=== PATIENT | female | born 1960 | race Caucasian/White ===

== ENCOUNTER 2019-10-31 13:36 | Emergency (ER) | payer MEDICARE ==
--- NOTE | 2019-10-31 14:43 | ER Document Report ---
ED Medical Screen (RME) - General Chief Complaint: Fall Stated Complaint: FALL/LEFT SIDED PAIN/DIZZINESS Time Seen by Provider: 10/31/19 14:34 Mode of Arrival: Wheelchair Information source: Patient Notes: 59-year-old female presents to ED for complaint of fall at 10 AM this morning. She states she was getting ready to move and she tripped over a suitcase. She states she is having severe pain in her left arm her left hip and difficulty breathing. She states she does have a history of seizures strokes with an aneurysm patent foramen ovale SVT back fusion partial hip replacement on the left and a right shoulder surgery. She states she does smoke 4 cigarettes a day does not drink or use any illicit drugs. I have greeted and performed a rapid initial assessment of this patient. A comprehensive ED assessment and evaluation of the patient, analysis of test results and completion of medical decision making process will be conducted by an additional ED providers. - Related Data Allergies/Adverse Reactions: morphine Allergy (Verified 10/31/19 14:35) Sulfa (Sulfonamide Antibiotics) Allergy (Verified 10/31/19 14:35) Physical Exam - Vital signs Vitals: Temp Pulse Resp BP Pulse Ox 98.7 F 67 18 96/55 L 97 10/31/19 13:53 10/31/19 13:53 10/31/19 13:53 10/31/19 13:53 10/31/19 13:53 Course - Vital Signs Vital signs: Temp Pulse Resp BP Pulse Ox 98.7 F 67 18 96/55 L 97 10/31/19 13:53 10/31/19 13:53 10/31/19 13:53 10/31/19 13:53 10/31/19 13:53
--- NOTE | 2019-10-31 15:21 | RADIOLOGY REPORT (SQ) ---
EXAM DESCRIPTION: FOREARM LEFT COMPLETED DATE/TIME: 10/31/2019 3:13 pm REASON FOR STUDY: Fall shortness of breath pain in left ribs pain an COMPARISON: None. NUMBER OF VIEWS: Two views. TECHNIQUE: Two radiographic images acquired of the left forearm, including elbow and wrist in at siva st one projection. LIMITATIONS: None. FINDINGS: MINERALIZATION: Normal. BONES: No acute fracture in the forearm. There is subtle irregularity of the triquetrum which is inc ompletely evaluated. SOFT TISSUES: No obvious swelling or foreign body. OTHER: No other significant finding. IMPRESSION: No acute fracture in the left forearm. Subtle irregularity of the triquetrum. Recommend dedicated left wrist radiographs for further evalua tion. TECHNICAL DOCUMENTATION: JOB ID: [id number] 2010 [employer]- All Rights Reserved Reading location - IP/workstation name: [email or web address]
--- NOTE | 2019-10-31 15:23 | RADIOLOGY REPORT (SQ) ---
EXAM DESCRIPTION: HIP LEFT AP/LATERAL IMAGES COMPLETED DATE/TIME: 10/31/2019 3:13 pm REASON FOR STUDY: Fall shortness of breath pain in left ribs pain an COMPARISON: None. NUMBER OF VIEWS: Two views. TECHNIQUE: AP pelvis and additional frog legview of the left hip. LIMITATIONS: None. FINDINGS: MINERALIZATION: Normal. LEFT HIP: Status post left total hip arthroplasty. No periprosthetic lucency or displaced fracture. RIGHT HIP: No fracture or dislocation. No worrisome bone lesions. Limited views. PUBIS AND ISCHIUM: No fracture. PELVIS: No fracture. SACRUM: No fracture or dislocation. No worrisome bone lesions. LOWER LUMBAR SPINE: No fracture or dislocation. No worrisome bone lesions. No significant disc disea se. Posterior fusion at L4-S1 is noted. SOFT TISSUES: No findings. OTHER: No other significant finding. IMPRESSION: No acute fracture in the pelvis or left hip. TECHNICAL DOCUMENTATION: JOB ID: [id number] 2010 [employer] All Rights Reserved Reading location - IP/workstation name: [email or web address]
--- NOTE | 2019-10-31 15:25 | RADIOLOGY REPORT (SQ) ---
EXAM DESCRIPTION: RIBS LEFT W/PA CHEST IMAGES COMPLETED DATE/TIME: 10/31/2019 3:13 pm REASON FOR STUDY: Fall shortness of breath pain in left ribs pain an COMPARISON: None. TECHNIQUE: Frontal view of the chest and additional views of the left ribs acquired. NUMBER OF VIEWS: 3 LIMITATIONS: None. FINDINGS: FRONTAL CXR: No pneumothorax. No pleural effusion. No atelectasis or infiltrates. RIBS: No displaced rib fractures. No lytic or blastic bony lesions. OTHER: Presumed ASD closure device is noted. No other significant finding. IMPRESSION: No displaced or angulated rib fracture. No acute pulmonary process. COMMENT: SITE OF TRAUMA/COMPLAINT MARKED/STAMP COMPLETED: YES. TECHNICAL DOCUMENTATION: JOB ID: [id number] 2010 [email or web address]- All Rights Reserved Reading location - IP/workstation name: [email or web address]
[2019-10-31 15:57] LABS: HEMATOCRIT 36.8 % (36.0-47.0); HEMOGLOBIN 11.6 g/dL (12.0-15.5); MEAN CORPUSCULAR HEMOGLOBIN 18.9 pg (27.0-33.4); MEAN CORPUSCULAR HGB CONC 31.5 g/dL (32.0-36.0); PLATELET COUNT 343 10^3/uL (150-450); RED BLOOD COUNT 6.14 10^6/uL (3.72-5.28); RED CELL DISTRIBUTION WIDTH 16.8 % (11.5-14.0); WHITE BLOOD COUNT 13.6 10^3/uL (4.0-10.5)
[2019-10-31 16:04] LABS: ALBUMIN 5.2 g/dL (3.5-5.0); ALKALINE PHOSPHATASE 45 U/L (38-126); ANION GAP 12 (5-19); ASPARTATE AMINO TRANSFERASE 31 U/L (14-36); BILIRUBIN,DIRECT 0.3 mg/dL (0.0-0.4); BILIRUBIN,TOTAL 1.1 mg/dL (0.2-1.3); BLOOD UREA NITROGEN 24 mg/dL (7-20); CALCIUM 9.7 mg/dL (8.4-10.2); CARBON DIOXIDE 22 mmol/L (22-30); CHLORIDE 106 mmol/L (98-107); GLUCOSE 108 mg/dL (75-110); POTASSIUM 4.2 mmol/L (3.6-5.0); TOTAL PROTEIN 8.4 g/dL (6.3-8.2)
[2019-10-31 16:34] LABS: MEAN CORPUSCULAR VOLUME 60 fl (80-97)
[2019-10-31 16:37] LABS: ABSOLUTE MONOCYTES # (MANUAL) 0.1 10^3/uL (0.1-1.4); BAND NEUTROPHILS % (MANUAL) 1 % (3-5); BASOPHILS % (MANUAL) 1 % (0-2); EOSINOPHILS % (MANUAL) 0 % (0-6); LYMPHOCYTES % (MANUAL) 15 % (13-45); MONOCYTES % (MANUAL) 1 % (3-13); SEGMENTED NEUTROPHILS % (MAN) 82 % (42-78); TOTAL CELLS COUNTED 100
[2019-10-31 16:38] LABS: ANISOCYTOSIS 1+; HYPOCHROMASIA 2+
[2019-10-31 16:39] LABS: OVALOCYTES 2+; PLATELET COMMENT ADEQUATE; TARGET CELLS SLIGHT
[2019-10-31] MEDS ORDERED: HYDROCODONE/ACETAMINOPHEN 5-325 MG TABLET PO ONE (17:31)
--- NOTE | 2019-10-31 17:32 | ER Document Report ---
ED Fall - General Chief Complaint: Fall Stated Complaint: FALL/LEFT SIDED PAIN/DIZZINESS Time Seen by Provider: 10/31/19 14:34 Mode of Arrival: Wheelchair Information source: Patient Notes: 59-year-old female presents to ED for complaint of fall at 10 AM this morning. She states she was getting ready to move and she tripped over a suitcase. She states she is having severe pain in her left arm her left hip and difficulty breathing. She states she does have a history of seizures strokes with an aneurysm patent foramen ovale SVT back fusion partial hip replacement on the left and a right shoulder surgery. She states she does smoke 4 cigarettes a day does not drink or use any illicit drugs. REVIEW OF SYSTEMS: Patient has a history of thalassemia with renal sufficiency CONSTITUTIONAL : Denies fever, chills, or sweats. Denies recent illness. EENT: Denies eye, ear, throat, or mouth pain or symptoms. Denies nasal or sinus congestion. CARDIOVASCULAR: Left rib pain RESPIRATORY: Pain to left ribs after tripping over a suitcase landing on her left side. GASTROINTESTINAL: Denies abdominal pain. Denies nausea, vomiting, or diarrhea. Denies constipation. Last BM: GENITOURINARY: Denies difficulty urinating, painful urination, burning, frequency, or blood in urine. FEMALE GENITOURINARY: Denies vaginal bleeding, abnormal or irregular periods. Postmenopausal MUSCULOSKELETAL: Pain and discomfort to the left hip left arm and left wrist SKIN: Denies rash or skin lesions. HEMATOLOGIC : Denies easy bruising or bleeding. LYMPHATIC: Denies swollen, enlarged glands. NEUROLOGICAL: Denies altered mental status or loss of consciousness. Denies headache. Denies weakness or paralysis or loss of use of either side. Denies problems with gait or speech. Denies sensory or motor loss. PSYCHIATRIC: Denies anxiety or stress or depression. ALL OTHER SYSTEMS REVIEWED AND NEGATIVE. VITAL SIGNS: Within normal limits. GENERAL: No acute distress, non-toxic appearance. HEAD: Normal with no signs of head trauma. EYES: PERRLA, EOMI, conjunctiva normal, no discharge. EARS: Hearing grossly intact. NOSE: Normal. THROAT: Oropharynx is normal. NECK: Normal range of motion, no tenderness, supple, no lymphadenopathy, No adenopathy, no JVD. CHEST: Left rib pain clear breath sounds bilaterally. No wheezes, rales, or rhonchi. MUSCULOSKELETAL: Complains of pain to the left hip left ribs and left wrist and forearm. Reduced movement to the wrist due to pain. NEUROLOGICAL: Alert and oriented x 3. No focal sensory or strength deficits. Speech normal. Follows commands appropriately. PSYCHIATRIC: Normal Affect, judgement and mood. SKIN: Normal appearance with no rashes or lesions. - HPI Occurred: Just prior to arrival Where: Home, Indoors Context: Tripped - Over a suitcase Associated symptoms: None, Difficulty breathing - With deep breathing Location of injury/pain: Chest - Left rib pain, Hip - Left hip pain, Upper extremity Quality of pain: Sharp, Throbbing Severity: Moderate Pain Level: 3 - Related data Allergies/Adverse Reactions: morphine Allergy (Verified 10/31/19 14:35) Sulfa (Sulfonamide Antibiotics) Allergy (Verified 10/31/19 14:35) Past Medical History - General Information source: Patient - Social History Smoking Status: Current Every Day Smoker Cigarette use (# per day): Yes - 2 cigarettes a day Smoking Education Provided: Yes Frequency of alcohol use: None Drug Abuse: None Family History: Reviewed & Not Pertinent Patient has homicidal ideation: No - Past Medical History Cardiac Medical History: Reports: Hx Coronary Artery Disease, Other - Patent foramen ovale SVT Pulmonary Medical History: Reports: None Neurological Medical History: Reports: Hx Cerebrovascular Accident - Aneurysm, Hx Seizures Endocrine Medical History: Reports: None Renal/ Medical History: Reports: None Malignancy Medical History: Reports: None GI Medical History: Reports: None Musculoskeletal Medical History: Reports Hx Arthritis, Reports Hx Musculoskeletal Deformity, Reports Hx Musculoskeletal Trauma Skin Medical History: Reports None Psychiatric Medical History: Reports: None Traumatic Medical History: Reports: Hx Fractures Infectious Medical History: Reports: None Past Surgical History: Reports: Hx Orthopedic Surgery - Right shoulder partial hip replacement - Immunizations Immunizations up to date: Yes Physical Exam - Vital signs Vitals: Temp Pulse Resp BP Pulse Ox 98.7 F 67 18 96/55 L 97 10/31/19 13:53 10/31/19 13:53 10/31/19 13:53 10/31/19 13:53 10/31/19 13:53 Course - Re-evaluation Re-evalutation: 11/01/19 01:00 X-ray reports were discussed with patient and daughter. Written report of x- rays given to patient as well as a CD of the x-rays as patient does not live locally. Patient was given a incentive spirometer decrease the risk of pneumonia by exercise in the lungs. She was treated with a thumb spica splint for her fracture to the wrist. Patient was instructed to follow-up with her orthopedic as soon as she returned home. Daughter was with patient and luis marieed understanding and agreement treatment plan patient was discharged home. - Vital Signs Vital signs: Temp Pulse Resp BP Pulse Ox 98.7 F 70 16 112/82 98 10/31/19 13:53 10/31/19 18:31 10/31/19 18:31 10/31/19 18:31 10/31/19 18:31 - Laboratory Result Diagrams: 10/31/19 15:33 10/31/19 15:33 Laboratory results interpreted by me: 10/31/19 10/31/19 15:33 15:33 WBC 13.6 H RBC 6.14 H Hgb 11.6 L MCV 60 L MCH 18.9 L MCHC 31.5 L RDW 16.8 H Seg Neuts % (Manual) 82 H Band Neutrophils % 1 L Monocytes % (Manual) 1 L Abs Neuts (Manual) 11.3 H BUN 24 H Est GFR (MDRD) Non-Af 53 L Total Protein 8.4 H Albumin 5.2 H - Diagnostic Test Radiology reviewed: Image reviewed, Reports reviewed Procedures - Immobilization Left Wrist Time completed: 18:20 Pre-Proc Neuro Vasc Exam: Normal Immobilizer type: Thumb spica Performed by: PCT Post-Proc Neuro Vasc Exam: Normal Alignment checked and good: Yes Discharge - Discharge Clinical Impression: Left forearm pain Fall Qualifiers: Encounter type: initial encounter Qualified Code(s): W19.XXXA - Unspecified fall, initial encounter Contusion of left hip Qualifiers: Encounter type: initial encounter Qualified Code(s): S70.02XA - Contusion of left hip, initial encounter Contusion of rib on left side Qualifiers: Encounter type: initial encounter Qualified Code(s): S20.212A - Contusion of left front wall of thorax, initial encounter Nondisplaced fracture of triquetrum of left wrist Qualifiers: Encounter type: initial encounter Fracture type: closed Qualified Code(s): S62.115A - Nondisplaced fracture of triquetrum [cuneiform] bone, left wrist, initial encounter for closed fracture Condition: Stable Disposition: HOME, SELF-CARE Additional Instructions: You have a nondisplaced triquetrum fracture or fracture in your wrist bones. This is a very small burn it is very important that you follow-up with orthopedics for fracture in this area. Sometimes you do need to have surgery on this and is very important that you follow-up promptly. Please keep the splint in place until you follow-up with orthopedics. Elevate and ice your arms as per instructions below. Rib Contusion You have been diagnosed as having bruised ribs. It will usually take a few weeks for these injured ribs to heal. You should cough or take a deep breath at least every hour or two to prevent lung complications. You should not engage in any strenuous physical activity until released by your physician. The usual rule is "if it hurts, don't do it." Return if you develop any of the following: (1) Fever or chills. (2) Persistent cough, coughing up blood, or shortness of breath. (3) Increasing pain. (4) Weakness, lightheadedness, or fainting. CONTUSION: Your injury has resulted in a contusion -- a crushing of the deep tissues. No injury to important structures was detected during the physician's exam. Contusions vary in the amount of pain they cause, and in the length of time required for healing. Typically, the area will become bruised, and will remain painful to touch for two or three weeks. However, most patients are back to working and playing within a few days. After the initial period of rest and cold-packs, your symptoms (together with the doctor's recommendations) will determine how rapidly you can get back to full activity. Usually this means "do what feels okay, but don't do things that hurt." If re-examination was recommended, it's important to follow up as instructed. Call the doctor or return any time if pain increases, if swelling becomes severe, if you develop numbness or weakness in an injured extremity, or if any other alarming symptoms occur. USE OF TYLENOL (ACETAMINOPHEN): Acetaminophen may be taken for pain relief or fever control. It's much safer than aspirin, offering a wider range of "safe" dosages. It is safe during . Some brand names are Tylenol, Panadol, Datril, Anacin 3, Tempra, and Liquiprin. Acetaminophen can be repeated every four hours. The following are maximum recommended dosages: WEIGHT Dose Drops Elixir Chewable(80mg) (LBS.) drprs=droppers tsp=teaspoon 6 40 mg 0.4 ml (1/2) 6-11 80 mg 0.8 ml (full) tsp 1 tab 12-16 120 mg 1 1/2 drprs 3/4 tsp 1 1/2 tabs 17-23 160 mg 2 drprs 1 tsp 2 tabs 24-30 240 mg 3 drprs 1 1/2 tsp 3 tabs 30-35 320 mg 2 tsp 4 tabs 36-41 360 mg 2 1/4 tsp 4 1/2 tabs 42-47 400 mg 2 1/2 tsp 5 tabs 48-53 480 mg 3 tsp 6 tabs 54-59 520 mg 3 1/4 tsp 6 1/2 tabs 60-64 560 mg 3 1/2 tsp 7 tabs 65-70 600 mg 3 3/4 tsp 7 1/2 tabs 71-76 640 mg 4 tsp 8 tabs 77-82 720 mg 4 1/2 tsp 9 tabs 83-88 800 mg 5 tsp 10 tabs >89 pounds or adults 650 mg to 900 mg Acetaminophen can be repeated every four hours. Maximum dose not to exceed 4000 mg a day. These maximum recommended dosages are slightly higher than the dosages written on the product container, but these dosages are very safe and below the toxic dosage for acetaminophen. Ice & Elevation Apply ice packs frequently against the painful area. Many different schedules are recommended, such as "20 minutes on, 20 minutes off" or "one hour ice, two hours rest." If you need to work, you may need to go longer between ice treatments. You should plan to have the area ice packed AT LEAST one-fourth of the time. The ice should be applied over the wrap, tape, or splint, or over a layer of cloth -- not directly against the skin. Some ice bags have a built-in cloth and can be put directly on the skin. Your injured part should be elevated as much as possible over the next 48 hours. Try to keep the injury above the level of the heart. Avoid use of the injured area. Elevation and rest will decrease the swelling. You need to follow-up with orthopedics as soon as you return home and can schedule an appointment. As you state you live 4 hours away I cannot schedule you an appointment or give you a referral as you were going home. ORAL NARCOTIC MEDICATION: You have been given a Alsey for pain control. This medication is a narcotic. It's best taken with food, as nausea can result if taken on an empty stomach. Don't operate machinery or drive within six hours of taking this medication. Do not combine this medicine with alcohol, or with any medication which can cause sedation (such as cold tablets or sleeping pills) unless you get permission from the physician. Narcotics tend to cause constipation. If possible, drink plenty of fluids and eat a diet high in fiber and fruits. FOLLOW-UP CARE: If you have been referred to a physician for follow-up care, call the physicians office for an appointment as you were instructed or within the next two days. If you experience worsening or a significant change in your symptoms, notify the physician immediately or return to the Emergency Department at any time for re-evaluation. Forms: Smoking Cessation Education
--- NOTE | 2019-10-31 18:00 | RADIOLOGY REPORT (SQ) ---
EXAM DESCRIPTION: WRIST LEFT 3 VIEWS IMAGES COMPLETED DATE/TIME: 10/31/2019 5:39 pm REASON FOR STUDY: left wrist pain COMPARISON: None. NUMBER OF VIEWS: Three views. TECHNIQUE: AP, lateral, and oblique radiographic images acquired of the left wrist. LIMITATIONS: None. FINDINGS: MINERALIZATION: Normal. BONES: There is cortical irregularity of the triquetrum (see lucas images). SOFT TISSUES: Mild soft tissue swelling is present about the wrist. OTHER: No other significant finding. IMPRESSION: Nondisplaced triquetrum fracture. TECHNICAL DOCUMENTATION: JOB ID: [id number] 2010 [employer]- All Rights Reserved Reading location - IP/workstation name: [email or web address]
[2019-10-31 18:32] VITALS: BP 112/82
[2019-11-01 13:05] LABS: PATH REVIEW PATHOLOGIST REVIEWED
== END 2019-10-31 18:29 | disposition home or self-care (01) ==
LOC: ER 13:36
DX: S62.115A Nondisplaced fracture of triquetrum [cuneiform] bone, left wrist, initial encounter for closed fracture (principal); S70.02XA Contusion of left hip, initial encounter; S20.212A Contusion of left front wall of thorax, initial encounter; W01.0XXA Fall on same level from slipping, tripping and stumbling without subsequent striking against object, initial encounter; Y92.009 Unspecified place in unspecified non-institutional (private) residence as the place of occurrence of the external cause; F17.210 Nicotine dependence, cigarettes, uncomplicated; I25.10 Atherosclerotic heart disease of native coronary artery without angina pectoris; Z88.6 Allergy status to analgesic agent; Z88.5 Allergy status to narcotic agent; Z88.2 Allergy status to sulfonamides
CPT/HCPCS: 99284; 36415; 85025; 80053; 73090; 73502; 71101; 73110; 29125; A9270